=== PATIENT | female | born 2000 | race Caucasian/White ===

== ENCOUNTER 2020-04-01 21:31 | Emergency (ER) | payer OTHER ==
[2020-04-01] MEDS ORDERED: Adacel (T-DAP) 0.5 ML SYRINGE ONE (22:04)
[2020-04-01] MEDS ORDERED: Rabies Vaccine Human 2.5 UNITS VIAL IM ONE (22:30)
== END 2020-04-01 23:53 | disposition home or self-care (01) ==
LOC: ERS 21:31
DX: S40.212A Abrasion of left shoulder, initial encounter (principal); Z23 Encounter for immunization; X58.XXXA Exposure to other specified factors, initial encounter
CPT/HCPCS: 90376; 90471; 90675; 90715; 96372; 99283

== ENCOUNTER → 2020-04-06 | Day surgery (SDC) | payer OTHER ==
[~2020-04-06] MED LIST: Rabies Vaccine Human 2.5 UNITS VIAL IM ONE
== END ==
LOC: ERS 19:00
PROVIDERS: ATTEND Nurse Practitioner
DX: Z29.14 Encounter for prophylactic rabies immune globulin (principal); Z88.2 Allergy status to sulfonamides
CPT/HCPCS: 90675